=== PATIENT | male | born 1970 | race African-American/Black ===

== ENCOUNTER 2019-04-04 07:28 | Inpatient (IN) | payer SELFPAY ==
[~2019-04-04] VITALS: Ht 177.8 cm; Wt 126.6 kg
[2019-04-04] MEDS ORDERED: ONDANSETRON HCL 4MG/2ML INJ IV STA (07:51)
[2019-04-04] MEDS ORDERED: SODIUM CHLORIDE 0.9% 1,000 ML IV ONE ×3 (07:51→09:50)
[2019-04-04] MEDS ORDERED: FENTANYL CITRATE/PF 50MCG/ML 2ML VIAL IV ONE (08:15)
[2019-04-04 08:18] LABS: BASOPHILS % 0.4 % (0.0-2.0); EOSINOPHILS % 0.4 % (0.0-5.0); HEMATOCRIT. 49.2 % (42.0-52.0); HEMOGLOBIN. 16.6 g/dL (14.0-18.0); LYMPHOCYTES % 12.6 % (20.0-50.0); MEAN CORPUSCULAR HEMOGLOBIN 31.9 pg (28.0-32.0); MEAN CORPUSCULAR VOLUME 94.3 fL (80.0-94.0); MEAN PLATELET VOLUME 9.6 fl (7.4-10.4); MONOCYTES % 0.7 % (2.0-8.0); NEUTROPHILS % 85.9 % (40.0-76.0); PLATELET 146 x1000/uL (130-400); RED BLOOD CELL COUNT 5.21 mill/uL (4.7-6.1); RED CELL DISTRIBUTION WIDTH 14.3 % (11.6-14.6)
[2019-04-04 08:25] LABS: CHLORIDE 108 mEq/L (98-107)
[2019-04-04 08:28] LABS: ETHANOL BLOOD < 10 mg/dL
[2019-04-04] MEDS ORDERED: AMMONIA INHALATION 1EA INH ONE ×2 (08:36→08:45)
[2019-04-04 09:15] LABS: CLARITY URINE TURBID (CLEAR); COLOR URINE AMBER (YELLOW); KETONES URINE 1+ (NEGATIVE); LEUKOCYTE ESTERASE URINE 2+ (NEGATIVE); NITRITE URINE POSITIVE (NEGATIVE); OCCULT BLOOD URINE 3+ (NEGATIVE); PROTEIN URINE 2+ (NEGATIVE); SPECIFIC GRAVITY URINE 1.013 (1.005-1.030)
[2019-04-04 09:38] LABS: *AMPHETAMINES SCREEN URINE NEGATIVE (NEGATIVE); *BARBITURATES SCREEN URINE NEGATIVE (NEGATIVE); *BENZODIAZEPINES SCREEN URINE NEGATIVE (NEGATIVE); *COCAINE SCREEN URINE NEGATIVE (NEGATIVE); CANNABINOID URINE SCREEN PRESUMTIVE POSITIVE (NEGATIVE); PHENCYCLIDINE URINE SCREEN NEGATIVE (NEGATIVE)
[2019-04-04 09:39] LABS: METHADONE URINE SCREEN NEGATIVE (NEGATIVE); OPIATES URINE SCREEN NEGATIVE (NEGATIVE)
[2019-04-04] MEDS ORDERED: LEVOFLOXACIN 500MG PREMIX 100 ML IV ONE (10:00)
[2019-04-04] MEDS ORDERED: CEFTRIAXONE 2 G PREMIX 50 ML IV ONE (10:00)
[2019-04-04 10:01] LABS: PARTIAL THROMBOPLASTIN TIME 20.1 sec (23.4-31.0); PROTHROMBIN TIME 10.5 sec (9.6-11.0)
[2019-04-04 12:44] LABS: BG BASE EXCESS -2.7 mmol/L (-2.0-2.0); BG CARBOXYHEMOGLOBIN 0.9 % (0.5-1.5); BG DEOXYHEMOGLOBIN 7.6 % (0.0-5.0); BG FRACTION INSPIRED OXYGEN 21; BG HCO3 ACT 21.3 mmol/L (22.0-26.0); BG METHEMOGLOBIN 0.3 % (0.0-1.5); BG OXYGEN SATURATION 92.3 % (92.0-98.5); BG OXYHEMOGLOBIN 91.2 % (94.0-97.0); BG PCO2 34.8 mmHg (35.0-45.0); BG PH 7.404 (7.350-7.450); BG PO2 64.1 mmHg (75.0-100.0); BG SAMPLE SITE RIGHT BRACHIAL; BG TOTAL HEMOGLOBIN 15.2 g/dL (12.0-18.0); BG VENT MODE ROOM AIR
[2019-04-04] MEDS ORDERED: HYDROMORPHONE HCL/PF 2MG/ML CPJ IV PRN (13:00)
[2019-04-04] MEDS ORDERED: MAGNESIUM/ALUMINUM HYDROXIDE/SIMETHICONE 30ML UDC PO PRN (13:00)
[2019-04-04] MEDS ORDERED: ONDANSETRON HCL 4MG/2ML INJ IV PRN (13:00)
[2019-04-04] MEDS ORDERED: CLONIDINE 0.1MG TABLET PO PRN (13:00)
[2019-04-04] MEDS ORDERED: GUAIFENESIN 200MG/10ML SUGAR FREE UDC PO PRN (13:00)
[2019-04-04] MEDS ORDERED: DOCUSATE SODIUM 100MG CAPSULE PO PRN (13:00)
[2019-04-04 13:11] VITALS: BP 110/62
[2019-04-04] MEDS: ACETAMINOPHEN 325MG TABLET PO PRN (17:54)
[2019-04-04] MEDS: SODIUM CHLORIDE 0.9% 1,000 ML IV SCH (17:55)
[2019-04-04 20:00] VITALS: BP 92/50
[2019-04-04] MEDS: HYDROCODONE/ACETAMINOPHEN 5/325MG TABLET PO PRN (21:38)
[2019-04-05] VITALS: BP 96/54
[2019-04-05] MEDS: ACETAMINOPHEN 325MG TABLET PO PRN (00:07)
[2019-04-05] MEDS: SODIUM CHLORIDE 0.9% 1,000 ML IV SCH ×3 (03:32→18:50)
[2019-04-05 04:00] VITALS: BP 90/53
[2019-04-05] MEDS: HYDROCODONE/ACETAMINOPHEN 5/325MG TABLET PO PRN (05:47)
[2019-04-05 06:48] LABS: HEMATOCRIT. 44.1 % (42.0-52.0); HEMOGLOBIN. 14.7 g/dL (14.0-18.0); MEAN CORPUSCULAR HEMOGLOBIN 31.6 pg (28.0-32.0); MEAN CORPUSCULAR VOLUME 94.8 fL (80.0-94.0); MEAN PLATELET VOLUME 9.7 fl (7.4-10.4); PLATELET 106 x1000/uL (130-400); RED BLOOD CELL COUNT 4.65 mill/uL (4.7-6.1); RED CELL DISTRIBUTION WIDTH 14.3 % (11.6-14.6)
[2019-04-05 06:54] LABS: CHLORIDE 105 mEq/L (98-107)
[2019-04-05 08:00] VITALS: BP 100/48
[2019-04-05] MEDS ORDERED: LEVOFLOXACIN 500MG PREMIX 100 ML IV SCH (10:00)
[2019-04-05 12:00] VITALS: BP 98/56
[2019-04-05 16:00] VITALS: BP 131/87
[2019-04-05 20:00] VITALS: BP 138/84
[2019-04-05 23:04] LABS: PLATELET ESTIMATE SLIGHTLY DECREASED
[2019-04-06] VITALS: BP 115/88
[2019-04-06] MEDS ORDERED: LORAZEPAM 2MG/ML CPJ IV PRN
[2019-04-06 04:00] VITALS: BP 125/78
[2019-04-06] MEDS: SODIUM CHLORIDE 0.9% 1,000 ML IV SCH ×2 (04:50→06:44)
[2019-04-06] MEDS: ACETAMINOPHEN 325MG TABLET PO PRN (06:51)
[2019-04-06 08:07] VITALS: BP 111/70
[2019-04-06] MEDS: LEVOFLOXACIN 500MG PREMIX 100 ML IV SCH (11:08)
[2019-04-06 11:46] VITALS: BP 114/75
[2019-04-06 16:06] VITALS: BP 116/68
[2019-04-06 20:00] VITALS: BP 110/74
[2019-04-07] VITALS (7 sets, daily range): BP systolic 98–114; BP diastolic 64–76
[2019-04-07] MEDS: LEVOFLOXACIN 500MG PREMIX 100 ML IV SCH (10:52)
== END 2019-04-07 13:43 | disposition home or self-care (01) | DRG 463 ==
LOC: ER 07:28 → EDBEDREQ 10:42 → EDBEDREQTM 10:42 → 5WST 11:00 → EDBEDREQSVC 11:04 → EDBEDREQ 11:04 → EDBEDREQTM 11:04 → ENRESERV 11:13
PROVIDERS: ADMIT Hospitalist; ATTEND Hospitalist
DX: N12 Tubulo-interstitial nephritis, not specified as acute or chronic (principal); B96.20 Unspecified Escherichia coli [E. coli] as the cause of diseases classified elsewhere; R31.0 Gross hematuria; Z88.5 Allergy status to narcotic agent
CPT/HCPCS: 36415; 36600; 71045; 74176; 80305; 80320; 82375; 82805; 82962; 83605; 83880; 84484; 86850; 86900; 87077; 87186; 93005; 93970; 96365; 96366; 96375; 97161; 99285; C1893; J0696; J1956; J2405; J3010; J7030; G0480